=== PATIENT | female | born 1970 | race Caucasian/White ===

== ENCOUNTER 2018-05-08 11:32 | Emergency (ER) | payer MEDICAID ==
[~2018-05-08] VITALS: Ht 152.4 cm; Wt 63.8 kg
[~2018-05-08 11:32] MED LIST: HYDR-3498 PO; ONDA4TAB8 PO
[2018-05-08 12:33] VITALS: Ht 152.4 cm; Wt 63.8 kg
[2018-05-08] MEDS ORDERED: KETOROLAC 60 MG INJ IM STA (12:53)
[2018-05-08] MEDS ORDERED: GABA300C16 PO (13:37)
--- NOTE | 2018-05-08 13:41 | ERD ---
ER Documentation Chief Complaint Chief Complaint HEADACHE ; BODY PAIN; NAUSEA HPI 47-year-old female presenting with headache and body aches. Patient has nausea. She has no fevers. Has had nausea headaches for the last day. No visual changes. She states that she has diffuse body pain and has had this in the past which she is taking gabapentin for she states her symptoms improved with the medication. Patient also has hypercholesterolemia. Allergy to naproxen. Surgical history and cholecystectomy. Social history 3 cigarettes a day. ROS All systems reviewed and are negative except as per history of present illness. Medications Home Meds Active Scripts Gabapentin* (Gabapentin*) 300 Mg Capsule, 300 MG PO BID, #60 CAP Prov:ELFEGO MARTINEZ PA-C 05/08/18 Ondansetron Hcl* (Zofran*) 4 Mg Tablet, 4 MG PO Q8H PRN for NAUSEA AND/OR V OMITING, #9 TAB Prov:LUC MAJOR DO 06/06/15 Hydrocodone Bit-Acetaminophen* ([place]*) 5-325 Mg Tab, 1 TAB PO Q6 PRN for PAIN, #20 TAB Prov:LUC MAJOR DO 06/06/15 Allergies Allergies: Coded Allergies: naproxen (Verified Allergy, Unknown, swelling, 05/08/18) PMhx/Soc History of Surgery: Yes (3 cesareans) Anesthesia Reaction: No Hx Neurological Disorder: No Hx Respiratory Disorders: No Hx Cardiac Disorders: No Hx Psychiatric Problems: No Hx Miscellaneous Medical Probl: Yes (gallstones, s/p 3 years) Hx Alcohol Use: No Hx Substance Use: No Hx Tobacco Use: Yes (X1CIG/DAY) Smoking Status: Current every day smoker FmHx Family History: No diabetes, No coronary disease, No other Physical Exam Vitals Vital Signs Date Temp Pulse Resp B/P (MAP) Pulse Ox O2 O2 Flow FiO2 Time Delivery Rate 05/08/18 98.5 82 19 116/67 100 12:33 (83) Physical Exam GENERAL: The patient is well-appearing, well-nourished, in no acute distress HEENT: Atraumatic. Conjunctivae are pink. Pupils equal, round, and reactive to light. There is no scleral icterus. Tympanic membranes clear bilaterally. Oropharynx clear. No nystagmus or photophobia. NECK: C-spine is soft and supple. There is no meningismus. There is no cervical lymphadenopathy. CHEST: Clear to auscultation bilaterally. There are no rales, wheezes or rhonchi. HEART: Regular rate and rhythm. No murmurs, clicks, rubs or gallops. ABDOMEN:Soft, nontender and nondistended. Good bowel sounds. No rebound or guarding. No gross peritonitis. No gross organomegaly or masses. No Cordova sign or McBurney point tenderness. BACK: No midline or flank tenderness. EXTREMITIES: Equal pulses bilaterally. There is no peripheral clubbing, cyanosis or edema. No focal swelling or erythema. Full range of motion. Grossly neurovascularly intact. NEUROLOGIC: Alert and oriented. Cranial nerves II through XII intact. Motor strength in all 4 extremities with 5 out of 5 strength. Sensation grossly intact. Normal speech and gait. Result Diagram: 05/08/18 1303 05/08/18 1303 Results 24 hrs Laboratory Tests Test 05/08/18 13:03 05/08/18 13:05 White Blood Count 10.9 10^3/ul Red Blood Count 4.57 10^6/ul Hemoglobin 14.1 g/dl Hematocrit 41.5 % Mean Corpuscular Volume 90.8 fl Mean Corpuscular Hemoglobin 30.9 pg Mean Corpuscular Hemoglobin Concent 34.0 g/dl Red Cell Distribution Width 12.4 % Platelet Count 405 10^3/UL Mean Platelet Volume 9.8 fl Immature Granulocytes % 0.600 % Neutrophils % 77.8 % Lymphocytes % 14.7 % Monocytes % 6.5 % Eosinophils % 0.1 % Basophils % 0.3 % Nucleated Red Blood Cells % 0.0 /100WBC Immature Granulocytes # 0.070 10^3/ul Neutrophils # 8.4 10^3/ul Lymphocytes # 1.6 10^3/ul Monocytes # 0.7 10^3/ul Eosinophils # 0.0 10^3/ul Basophils # 0.0 10^3/ul Nucleated Red Blood Cells # 0.0 10^3/ul Urine Color YIFAN Urine Clarity SLIGHTLY CLOUDY Urine pH 6.0 Urine Specific [place] 1.028 Urine Ketones NEGATIVE mg/dL Urine Nitrite NEGATIVE mg/dL Urine Bilirubin NEGATIVE mg/dL Urine Urobilinogen NEGATIVE mg/dL Urine Leukocyte Esterase NEGATIVE Miracle/ul Urine Microscopic RBC 48 /HPF Urine Microscopic WBC 8 /HPF Urine Squamous Epithelial Cells MANY /HPF Urine Mucus MANY /HPF Urine Hemoglobin 3+ mg/dL Urine Glucose NEGATIVE mg/dL Urine Total Protein 1+ mg/dl Sodium Level 140 mmol/L Potassium Level 4.4 mmol/L Chloride Level 106 mmol/L Carbon Dioxide Level 24 mmol/L Anion Gap 10 Blood Urea Nitrogen 13 mg/dl Creatinine 0.60 mg/dl Est Glomerular Filtrat Rate mL/min > 60 mL/min Glucose Level 128 mg/dl Calcium Level 9.6 mg/dl Total Bilirubin 0.6 mg/dl Direct Bilirubin 0.00 mg/dl Indirect Bilirubin 0.6 mg/dl Aspartate Amino Transf (AST/SGOT) 27 IU/L Alanine Aminotransferase (ALT/SGPT) 27 IU/L Alkaline Phosphatase 150 IU/L Total Protein 8.2 g/dl Albumin 4.3 g/dl Globulin 3.90 g/dl Albumin/Globulin Ratio 1.10 Lipase 135 U/L POC Beta HCG, Qualitative NEGATIVE Current Medications Medications Dose Sig/Nathen Start Time Status Last (Trade) Ordered Route PRN Stop Time Admin Dose Reason Admin Ketorolac 60 mg ONCE STAT 05/08/18 DC 05/08/18 Tromethamine IM 12:53 13:14 (Toradol) 05/08/18 12:55 Procedures/MDM ER course: Blood work normal. MDM: 47-year-old female presenting these body pain. Patient states she had symptom relief with gabapentin in the past she will be prescribed medication again today. I have low suspicion for infectious etiology. I am patient's blood work is within normal limits. I have low suspicion for electrolyte abnormalities. Patient is discharged stricter precautions and told to follow-up with primary care within 1-2 days for close evaluation. Patient is told if symptoms change or worsen to return to the ER. All questions answered at discharge Departure Diagnosis: Primary Impression: Myalgia Condition: Stable Patient Instructions: Myalgias Referrals: [facility] YOU HAVE RECEIVED A MEDICAL SCREENING EXAM AND THE RESULTS INDICATE THAT YOU DO NOT HAVE A CONDITION THAT REQUIRES URGENT TREATMENT IN THE EMERGENCY DEPARTMENT. FURTHER EVALUATION AND TREATMENT OF YOUR CONDITION CAN WAIT UNTIL YOU ARE SEEN IN YOUR DOCTORS OFFICE WITHIN THE NEXT 1-2 DAYS. IT IS YOUR RESPONSIBILITY TO MAKE AN APPOINTMENT FOR FOLOW-UP CARE. IF YOU HAVE A PRIMARY DOCTOR --you should call your primary doctor and schedule an appointment IF YOU DO NOT HAVE A PRIMARY DOCTOR YOU CAN CALL OUR PHYSICIAN REFERRAL HOTLINE AT IF YOU CAN NOT AFFORD TO SEE A PHYSICIAN YOU CAN CHOSE FROM THE FOLLOWING [facility] CL[facility] [address] [facility] [address] [facility] [address] [facility] [address] [facility] [address] [facility]. [address] Additional Instructions: FOLLOW UP WITH YOUR PRIMARY CARE PHYSICIAN TOMORROW.Return to this facility if you are not improving as expected. ELFEGO MARTINEZ PA-C May 08, 2018 13:41
[2018-05-08 13:46] VITALS: BP 132/73; PULSE 73; RESP 19
== END 2018-05-08 13:52 | disposition home or self-care (01) ==
LOC: FTE 11:32
DX: M79.10 Myalgia, unspecified site (principal); F17.210 Nicotine dependence, cigarettes, uncomplicated
CPT/HCPCS: 36415; 80053; 81001; 81025; 83690; 85025; 96372; J1885; Z7502